=== PATIENT | male | born 1955 | race Caucasian/White ===

== ENCOUNTER 2024-11-27 10:35 | Inpatient (IN) | payer MEDICARE, OTHER ==
[2024-11-27] VITALS (8 sets, daily range): BP systolic 110–114; BP diastolic 68–69; PULSE 66–78; RESP 16–20; TEMP 97.4–98.9; O2SAT 93–95
[~2024-11-27] VITALS: Ht 182.9 cm; Wt 99.6 kg
[~2024-11-27 10:35] MED LIST: AMLODIPINE BES2.5 MG PO; ASPIR 8181 MG PO; COLACE100 MG PO; COUMADIN3 MG PO; DIGOXIN125 MCG PO; LASIX40 MG PO; LISINOPRIL10 MG PO; METOPROLOL SUCC25 MG PO; NORCO 5-325 TA1 EACH PO; PACERONE100 MG PO; POTASSIUM CHLO20 ME1 PO
[2024-11-27] MEDS: TRAMADOL HCL 50 MG TAB PO ONE (11:16)
[2024-11-27] MEDS: KETOROLAC TROMETHAMINE 30 MG/ML VIAL IM STA (11:17)
[2024-11-27 16:10] LABS: BASOPHILS % 0.6 % (0.0-1.0); EOSINOPHILS % 2.5 % (0.0-6.0); LYMPHOCYTES % 41.8 % (18.0-39.1); MONOCYTES % 27.2 % (4.4-11.3); NEUTROPHILS % 27.3 % (38.7-80.0); RED CELL DISTRIBUTION WIDTH 18.7 % (11.7-14.4)
[2024-11-27 16:30] LABS: EST GLOMERULAR FILTRATION RATE 100.0 ML/MIN (>=60)
[2024-11-27] MEDS ORDERED: FUROSEMIDE INJ 10 MG/ML 4 ML VIAL IV SCH (17:15)
[2024-11-27] MEDS ORDERED: FAMOTIDINE 20 MG TAB PO PRN (17:30)
[2024-11-27] MEDS ORDERED: IOPAMIDOL 370 MG/ML 100 ML INFUS..BTL INJ ONE (17:42)
[2024-11-27 17:56] LABS: % IRON SATURATION 91.0 % (15-50)
[2024-11-27 18:04] LABS: EOSINOPHILS % (MANUAL) 6 % (0-7); LYMPHOCYTES % (MANUAL) 20 % (19-48); METAMYELOCYTES % (MANUAL) 2 % (0-0); MONOCYTES % (MANUAL) 30 % (3.4-9.0); NEUTROPHILS % (MANUAL) 42 % (40-74)
[2024-11-27 18:05] LABS: PLATELET ESTIMATE MARKEDLY DECREASED; PLATELET MORPHOLOGY COMMENT NORMAL; RBC MORPHOLOGY COMMENT NORMAL
[2024-11-27 18:17] LABS: INR 4.13
[2024-11-27 18:57] LABS: HIV 1&2 AB SCREEN NON-REACTIVE (NONREACTIVE); HIV- 1 P24 AG SCREEN NON-REACTIVE (NONREACTIVE)
[2024-11-27] MEDS: Morphine 4mg INJECTION 4 MG/ML INJ IV PRN (21:32)
[2024-11-27] MEDS: ONDANSETRON HCL 4 MG ORAL DISINTEGRATING TAB PO PRN (21:49)
[2024-11-27] MEDS: POLYETHYLENE GLYCOL 3350 17 GM PACK PO ONE (21:54)
[2024-11-27] MEDS: MELATONIN 5 MG TABLET PO PRN (21:54)
[2024-11-27] MEDS: MAGNESIUM SULF 1GRAM/DEXTROSE 100 ML IV ONE (22:11)
[2024-11-27] MEDS: SODIUM CHLORIDE 0.9% 250ML 250 ML ONE (22:12)
[2024-11-28] VITALS (11 sets, daily range): BP systolic 94–118; BP diastolic 54–70; PULSE 64–114; RESP 18–21; TEMP 97.7–99.7; O2SAT 91–98
[2024-11-28 05:34] LABS: BASOPHILS % 0.6 % (0.0-1.0); EOSINOPHILS % 4.9 % (0.0-6.0); LYMPHOCYTES % 48.8 % (18.0-39.1); MONOCYTES % 29.6 % (4.4-11.3); NEUTROPHILS % 15.5 % (38.7-80.0); RED CELL DISTRIBUTION WIDTH 18.6 % (11.7-14.4)
[2024-11-28 05:56] LABS: EST GLOMERULAR FILTRATION RATE 99.0 ML/MIN (>=60)
[2024-11-28 08:41] LABS: EOSINOPHILS % (MANUAL) 6 % (0-7); LYMPHOCYTES % (MANUAL) 30 % (19-48); MONOCYTES % (MANUAL) 26 % (3.4-9.0); NEUTROPHILS % (MANUAL) 38 % (40-74); PLATELET ESTIMATE MODERATELY DECREASED; PLATELET MORPHOLOGY COMMENT NORMAL; RBC MORPHOLOGY COMMENT NORMAL
[2024-11-28] MEDS: FUROSEMIDE INJ 10 MG/ML 4 ML VIAL IV SCH (09:00)
[2024-11-28] MEDS ORDERED: METOPROLOL SUCCINATE 25 MG TAB XL PO SCH (09:00)
[2024-11-28] MEDS ORDERED: METOPROLOL SUCCINATE 25 MG TAB XL PO ONE (09:15)
[2024-11-28] MEDS: METOPROLOL SUCCINATE 25 MG TAB XL PO SCH (09:19)
[2024-11-28] MEDS: LACTULOSE SYRUP 20 GM/30 ML UDC PO SCH (11:17)
[2024-11-28] MEDS: FUROSEMIDE INJ 10 MG/ML 2 ML VIAL IV SCH (11:17)
[2024-11-28] MEDS: METOPROLOL TARTRATE INJ 1 MG/ML VIAL IV SCH (11:17)
[2024-11-28] MEDS: ALBUMIN 25% 25GM 100ML 0.25 GM/ML BTL IV ONE (12:31)
[2024-11-28 15:20] LABS: HEPATITIS A ANTIBODY IGM (P) Negative; HEPATITIS B CORE IGM (P) Negative; HEPATITIS B SURFACE AG (P) Negative
[2024-11-28] MEDS: DIGOXIN INJ 0.25 MG/ML 2 ML AMP IV ONE (15:25)
[2024-11-28] MEDS: HYDROCODONE/APAP 5MG-325MG TAB PO PRN (21:07)
[2024-11-29] VITALS (26 sets, daily range): BP systolic 82–113; BP diastolic 41–88; PULSE 77–133; RESP 15–25; TEMP 97.6–98.9; O2SAT 57–100
[2024-11-29 05:28] LABS: BASOPHILS % 0.4 % (0.0-1.0); EOSINOPHILS % 1.7 % (0.0-6.0); LYMPHOCYTES % 46.3 % (18.0-39.1); MONOCYTES % 26.4 % (4.4-11.3); NEUTROPHILS % 24.8 % (38.7-80.0); RED CELL DISTRIBUTION WIDTH 18.9 % (11.7-14.4)
[2024-11-29 05:58] LABS: EST GLOMERULAR FILTRATION RATE 89.0 ML/MIN (>=60)
[2024-11-29 08:31] LABS: BASOPHILS % (MANUAL) 2 % (0-1.5); EOSINOPHILS % (MANUAL) 2 % (0-7); LYMPHOCYTES % (MANUAL) 25 % (19-48); MONOCYTES % (MANUAL) 28 % (3.4-9.0); NEUTROPHILS % (MANUAL) 41 % (40-74); PLATELET ESTIMATE MODERATELY DECREASED; PLATELET MORPHOLOGY COMMENT NORMAL; RBC MORPHOLOGY COMMENT NORMAL; REACTIVE LYMPHOCYTES 2
[2024-11-29 09:00] LABS: INR 3.27
[2024-11-29] MEDS ORDERED: METOPROLOL SUCCINATE 50 MG TAB XL PO SCH (09:00)
[2024-11-29 09:05] LABS: LACTATE DEHYDROGENASE 389.0 IU/L (125-220)
[2024-11-29] MEDS: KETOROLAC TROMETHAMINE 30 MG/ML VIAL IV ONE (09:20)
[2024-11-29] MEDS: FILGRASTIM-AAFI 480 MCG/0.8 ML SYRINGE SQ ONE (09:20)
[2024-11-29] MEDS: METOPROLOL SUCCINATE 25 MG TAB XL PO SCH (09:21)
[2024-11-29] MEDS: FUROSEMIDE 20 MG TAB PO ONE (09:22)
[2024-11-29] MEDS: FUROSEMIDE 40 MG TAB PO SCH (09:22)
[2024-11-29] MEDS: ALBUMIN 25% 25GM 100ML 0.25 GM/ML BTL IV SCH (09:24)
[2024-11-29 11:31] LABS: LEUKOCYTE ESTERASE ,URINE NEGATIVE (NEGATIVE); PROTEIN,URINE DIPSTICK 2+ (NEGATIVE); URINE UROBILINOGEN 4.0 mg/dL (0.2 - 1)
[2024-11-29 11:32] LABS: EPITHELIAL CELLS,URINE FEW /LPF
[2024-11-29] MEDS: PANTOPRAZOLE SOD 40 MG TABEC PO SCH (16:57)
[2024-11-29] MEDS: DIGOXIN INJ 0.25 MG/ML 2 ML AMP IV ONE (16:57)
[2024-11-29 18:24] LABS: BASOPHILS % 0.4 % (0.0-1.0); EOSINOPHILS % 1.9 % (0.0-6.0); LYMPHOCYTES % 29.3 % (18.0-39.1); MONOCYTES % 20.8 % (4.4-11.3); NEUTROPHILS % 47.2 % (38.7-80.0); RED CELL DISTRIBUTION WIDTH 19.3 % (11.7-14.4)
[2024-11-29 18:43] LABS: EST GLOMERULAR FILTRATION RATE 49.0 ML/MIN (>=60)
[2024-11-29] MEDS ORDERED: FUROSEMIDE INJ 10 MG/ML 2 ML VIAL IV ONE (19:45)
[2024-11-29] MEDS ORDERED: MAGNESIUM/ALUMINUM/SIMETHICONE 30 ML UDC PO PRN (21:30)
[2024-11-29] MEDS ORDERED: ACETAMINOPHEN 325 MG TAB PO PRN (21:30)
[2024-11-29] MEDS ORDERED: HYDRALAZINE HCL 20 MG/ML VIAL IV PRN (21:30)
[2024-11-29] MEDS ORDERED: ACETAMINOPHEN 325 MG TAB PO ONE (22:15)
[2024-11-29] MEDS: ACETAMINOPHEN 325 MG TAB PO ONE (23:22)
[2024-11-30] VITALS (63 sets, daily range): BP systolic 71–136; BP diastolic 42–87; PULSE 72–139; RESP 13–27; TEMP 97.5–99.1; O2SAT 85–100
[2024-11-30] MEDS: ACETAMINOPHEN 325 MG TAB PO ONE (00:18)
[2024-11-30] MEDS: AMIODARONE HCL 150 MG/100 ML BAG IV ONE (01:13)
[2024-11-30] MEDS: AMIODARONE 900MG 900 MG in Premix Bag 1 BAG IV ONE (01:37)
[2024-11-30] MEDS: NOREPINEPHRINE 8 MG/D5W 250 ML 250 ML IV SCH (04:09)
[2024-11-30] MEDS: THIAMINE HCL 100 MG TAB PO SCH (08:19)
[2024-11-30] MEDS: FOLIC ACID 1 MG TAB PO SCH (08:19)
[2024-11-30] MEDS: MULTIVITAMINS/MINERALS TAB PO SCH (08:19)
[2024-11-30] MEDS: METOPROLOL SUCCINATE 25 MG TAB XL PO SCH (08:20)
[2024-11-30] MEDS: ALBUMIN 25% 25GM 100ML 0.25 GM/ML BTL IV SCH (08:30)
[2024-11-30] MEDS: BUMETANIDE INJ 0.25MG/ML 4ML VIAL IV ONE (08:34)
[2024-11-30] MEDS ORDERED: FUROSEMIDE INJ 10 MG/ML 4 ML VIAL IV SCH (09:00)
[2024-11-30] MEDS: BUMETANIDE 10 MG in SODIUM CHLORIDE 0.9% 60 ML IV SCH (09:17)
[2024-11-30 09:47] LABS: BASOPHILS % 0.0 % (0.0-1.0); EOSINOPHILS % 1.2 % (0.0-6.0); LYMPHOCYTES % 21.5 % (18.0-39.1); MONOCYTES % 22.5 % (4.4-11.3); NEUTROPHILS % 53.9 % (38.7-80.0); RED CELL DISTRIBUTION WIDTH 22.7 % (11.7-14.4)
[2024-11-30 10:13] LABS: INR 3.46
[2024-11-30 10:21] LABS: EST GLOMERULAR FILTRATION RATE 53.0 ML/MIN (>=60)
[2024-11-30] MEDS: ALBUMIN 25% 25GM 100ML 0.25 GM/ML BTL IV ONE (10:41)
[2024-11-30] MEDS: MAGNESIUM SULF 1GRAM/DEXTROSE 100 ML IV ONE (10:41)
[2024-11-30] MEDS: OCTREOTIDE ACETATE 500 MCG in SODIUM CHLORIDE 0.9% 250ML 249 ML IV SCH (11:04)
[2024-11-30] MEDS: THIAMINE HCL INJ 100 MG/ML 2ML VIAL IV SCH ×2 (12:08→12:11)
[2024-11-30 12:41] LABS: EOSINOPHILS % (MANUAL) 7 % (0-7); LYMPHOCYTES % (MANUAL) 18 % (19-48); MONOCYTES % (MANUAL) 20 % (3.4-9.0); NEUTROPHILS % (MANUAL) 54 % (40-74); PLATELET ESTIMATE MODERATELY DECREASED; PLATELET MORPHOLOGY COMMENT NORMAL; RBC MORPHOLOGY COMMENT NORMAL; REACTIVE LYMPHOCYTES 1
[2024-11-30 18:39] LABS: CREATININE,URINE RANDOM 57.35 mg/dL (63-166); TOTAL PROTEIN, URINE 35.5 mg/dL (1-14)
[2024-11-30] MEDS: SODIUM CHLORIDE 0.9% 250ML 250 ML ONE ×2 (19:36→19:37)
[2024-11-30] MEDS: SODIUM CHLORIDE 0.9% 250ML 250 ML IV ONE (19:36)
[2024-11-30] MEDS: AMIODARONE 900MG 500 ML IV ONE (19:37)
[2024-11-30] MEDS: FUROSEMIDE INJ 10 MG/ML 2 ML VIAL ONE (19:37)
[2024-11-30] MEDS: GUAIFENESIN 200 MG/10 ML UDC PO PRN (21:26)
[2024-12-01] VITALS (35 sets, daily range): BP systolic 94–140; BP diastolic 57–88; PULSE 92–126; RESP 15–25; TEMP 97.5–99.5; O2SAT 91–100
[2024-12-01] MEDS: AMIODARONE 900MG 900 MG in Premix Bag 1 BAG IV ONE (01:03)
[2024-12-01] MEDS: AMIODARONE 900MG 500 ML IV ONE (01:08)
[2024-12-01 06:50] LABS: BASOPHILS % 0.3 % (0.0-1.0); EOSINOPHILS % 0.9 % (0.0-6.0); LYMPHOCYTES % 21.4 % (18.0-39.1); MONOCYTES % 18.1 % (4.4-11.3); NEUTROPHILS % 58.7 % (38.7-80.0); RED CELL DISTRIBUTION WIDTH 23.0 % (11.7-14.4)
[2024-12-01 07:26] LABS: INR 3.34
[2024-12-01 07:33] LABS: EST GLOMERULAR FILTRATION RATE 44.0 ML/MIN (>=60)
[2024-12-01 08:41] LABS: ABG BASE EXCESS -4.0 mmol/L (-2 - 3); ABG HCO3 21 mmol/L (22-26); ABG OXYGEN SATURATION 94.0 % (95-98); ABG PCO2 34 mmHg (35-45); ABG PH 7.39 (7.35-7.45); ABG PO2 70 mmHg (80-105); ABG TCO2 22
[2024-12-01] MEDS: CEFTRIAXONE 2 GM in SODIUM CHLORIDE 0.9% 100 ML IV SCH (08:43)
[2024-12-01] MEDS: MIDODRINE 2.5 MG TAB PO SCH (08:45)
[2024-12-01 10:36] LABS: BAND NEUTROPHILS % (MANUAL) 1 %; EOSINOPHILS % (MANUAL) 2 % (0-7); LYMPHOCYTES % (MANUAL) 16 % (19-48); MONOCYTES % (MANUAL) 19 % (3.4-9.0); NEUTROPHILS % (MANUAL) 62 % (40-74); PLATELET ESTIMATE MARKEDLY DECREASED; PLATELET MORPHOLOGY COMMENT NORMAL
[2024-12-01] MEDS: EPOETIN ALFA-EPBX 10,000 UNIT/ML VIAL SC SCH (10:55)
[2024-12-01] MEDS: SODIUM CHLORIDE 0.9% 250ML 250 ML IV ONE (19:08)
[2024-12-01] MEDS: SODIUM CHLORIDE 0.9% 250ML 250 ML ONE (19:08)
[2024-12-02] VITALS (41 sets, daily range): BP systolic 94–117; BP diastolic 56–69; PULSE 100–149; RESP 15–24; TEMP 97.8–99.5; O2SAT 87–100
[2024-12-02 06:52] LABS: BASOPHILS % 0.3 % (0.0-1.0); EOSINOPHILS % 1.6 % (0.0-6.0); LYMPHOCYTES % 19.1 % (18.0-39.1); MONOCYTES % 15.0 % (4.4-11.3); NEUTROPHILS % 63.4 % (38.7-80.0); RED CELL DISTRIBUTION WIDTH 23.9 % (11.7-14.4)
[2024-12-02 07:03] LABS: INR 2.66
[2024-12-02 07:07] LABS: EST GLOMERULAR FILTRATION RATE 73.0 ML/MIN (>=60)
[2024-12-02] MEDS: IPRATROPIUM BROMIDE 0.02% 2.5 ML NEB NEB PRN (07:37)
[2024-12-02] MEDS: POTASSIUM CHLORIDE 20MEQ/100ML 100 ML IV ONE (08:34)
[2024-12-02] MEDS: AMIODARONE 900MG 500 ML IV SCH (08:37)
[2024-12-02 11:38] LABS: BAND NEUTROPHILS % (MANUAL) 12 %; EOSINOPHILS % (MANUAL) 1 % (0-7); LYMPHOCYTES % (MANUAL) 9 % (19-48); METAMYELOCYTES % (MANUAL) 1 % (0-0); MONOCYTES % (MANUAL) 5 % (3.4-9.0); NEUTROPHILS % (MANUAL) 72 % (40-74); NUCLEATED RED BLOOD CELLS 1; PLATELET ESTIMATE MARKEDLY DECREASED; PLATELET MORPHOLOGY COMMENT NORMAL
[2024-12-03] VITALS (27 sets, daily range): BP systolic 107–142; BP diastolic 60–127; PULSE 94–131; RESP 16–28; TEMP 97.6–99.1; O2SAT 87–100
[2024-12-03 06:36] LABS: BASOPHILS % 0.3 % (0.0-1.0); EOSINOPHILS % 1.8 % (0.0-6.0); LYMPHOCYTES % 16.1 % (18.0-39.1); MONOCYTES % 20.6 % (4.4-11.3); NEUTROPHILS % 60.3 % (38.7-80.0); RED CELL DISTRIBUTION WIDTH 23.9 % (11.7-14.4)
[2024-12-03 07:06] LABS: EST GLOMERULAR FILTRATION RATE 93.0 ML/MIN (>=60)
[2024-12-03 07:26] LABS: INR 2.19
[2024-12-03] MEDS: ALBUMIN 25% 25GM 100ML 0.25 GM/ML BTL IV ONE (07:28)
[2024-12-03] MEDS: POTASSIUM CHLORIDE 20MEQ/100ML 200 ML IV ONE ×3 (08:06→17:01)
[2024-12-03] MEDS: THIAMINE HCL INJ 100 MG/ML 2ML VIAL IV SCH (08:08)
[2024-12-03] MEDS ORDERED: GUAIFENESIN/CODEINE 5 ML LIQD PO PRN (08:30)
[2024-12-03] MEDS: MAGNESIUM SULF 1GRAM/DEXTROSE 100 ML IV ONE (09:27)
[2024-12-03] MEDS: ALBUMIN 25% 25GM 100ML 0.25 GM/ML BTL IV SCH (13:57)
[2024-12-03] MEDS ORDERED: AMIODARONE 900MG 900 MG in Premix Bag 1 BAG IV SCH (14:00)
[2024-12-03] MEDS: AMIODARONE 900MG 500 ML IV SCH (14:29)
[2024-12-04] VITALS (65 sets, daily range): BP systolic 102–127; BP diastolic 56–83; PULSE 95–130; RESP 17–32; TEMP 98–100.3; O2SAT 82–100
[2024-12-04 06:18] LABS: HEPATITIS A VIRUS AB TOTAL Negative
[2024-12-04 06:21] LABS: HEPATITIS C VIRUS, RNA DIAGNOS 121,000 IU/mL
[2024-12-04 06:27] LABS: HEPATITIS E AB (IGM) Negative
[2024-12-04 06:28] LABS: HEPATITIS B CORE AB TOTAL Positive
[2024-12-04 06:31] LABS: BASOPHILS % 0.3 % (0.0-1.0); EOSINOPHILS % 1.2 % (0.0-6.0); LYMPHOCYTES % 14.8 % (18.0-39.1); MONOCYTES % 21.8 % (4.4-11.3); NEUTROPHILS % 61.0 % (38.7-80.0); RED CELL DISTRIBUTION WIDTH 24.0 % (11.7-14.4)
[2024-12-04 06:52] LABS: EST GLOMERULAR FILTRATION RATE 95.0 ML/MIN (>=60); INR 2.38
[2024-12-04] MEDS: POTASSIUM CHLORIDE 20 MEQ TAB CR PO ONE (08:13)
[2024-12-04] MEDS: MAGNESIUM SULFATE 2GM/50ML 50 ML IV ONE ×2 (08:14→10:26)
[2024-12-04] MEDS: POTASSIUM CHLORIDE 20MEQ/100ML 100 ML IV SCH (14:01)
[2024-12-04] MEDS: AMIODARONE 900MG 900 MG in Premix Bag 1 BAG IV ONE (23:15)
[2024-12-05] VITALS (144 sets, daily range): BP systolic 70–137; BP diastolic 40–114; PULSE 58–154; RESP 17–36; TEMP 96.8–98.6; O2SAT 82–100
[2024-12-05] MEDS: AMIODARONE 900MG 500 ML IV ONE (01:59)
[2024-12-05 06:24] LABS: BASOPHILS % 0.2 % (0.0-1.0); EOSINOPHILS % 0.8 % (0.0-6.0); LYMPHOCYTES % 9.3 % (18.0-39.1); MONOCYTES % 10.7 % (4.4-11.3); NEUTROPHILS % 78.0 % (38.7-80.0); RED CELL DISTRIBUTION WIDTH 24.5 % (11.7-14.4)
[2024-12-05 06:41] LABS: INR 2.63
[2024-12-05 06:54] LABS: EST GLOMERULAR FILTRATION RATE 96.0 ML/MIN (>=60)
[2024-12-05] MEDS: ALBUMIN 25% 25GM 100ML 0.25 GM/ML BTL IV SCH (07:54)
[2024-12-05] MEDS: POTASSIUM CHLORIDE 20MEQ/100ML 100 ML IV ONE (09:12)
[2024-12-05 10:23] LABS: LYMPHOCYTES % (MANUAL) 4 % (19-48); MONOCYTES % (MANUAL) 13 % (3.4-9.0); NEUTROPHILS % (MANUAL) 83 % (40-74)
[2024-12-05 10:24] LABS: PLATELET ESTIMATE MARKEDLY DECREASED; PLATELET MORPHOLOGY COMMENT NORMAL; RBC MORPHOLOGY COMMENT ABNORMAL
[2024-12-05] MEDS: BUMETANIDE 10 MG in SODIUM CHLORIDE 0.9% 60 ML IV SCH (11:06)
[2024-12-05] MEDS: MAGNESIUM SULFATE 2GM/50ML 50 ML IV ONE (11:09)
[2024-12-05] MEDS: DIGOXIN INJ 0.25 MG/ML 2 ML AMP IV ONE (13:37)
[2024-12-05] MEDS ORDERED: METOPROLOL TARTRATE INJ 1 MG/ML VIAL IV PRN (14:00)
[2024-12-05] MEDS: DEXMEDETOMIDINE 400MCG/NS100ML 100 ML IV ONE (14:13)
[2024-12-05] MEDS: DEXMEDETOMIDINE 400MCG/NS100ML 100 ML IV PRN (14:13)
[2024-12-05] MEDS ORDERED: PROPOFOL IV EMULSION 10MG/ML 100 ML ONE (14:29)
[2024-12-05] MEDS: FENTANYL 2000MCG/NS 250 250 ML IV PRN (15:20)
[2024-12-05] MEDS: PROPOFOL IV EMULSION 10MG/ML 100 ML IV PRN (15:22)
[2024-12-05] MEDS: NOREPINEPHRINE 8 MG/D5W 250 ML 250 ML IV SCH (18:24)
[2024-12-05] MEDS ORDERED: SODIUM CHLORIDE 0.9% 1000ML 2,000 ML IV PRN (18:30)
[2024-12-05] MEDS ORDERED: HEPARIN SOD (PORCINE) 1000 UNIT/ML SDV IV PRN (18:30)
[2024-12-05] MEDS ORDERED: ALBUMIN 25% 12.5GM 0.25 GM/ML BTL IV PRN (18:30)
[2024-12-05 18:45] LABS: ABG BASE EXCESS 2.0 mmol/L (-2 - 3); ABG HCO3 27 mmol/L (22-26); ABG PCO2 48 mmHg (35-45); ABG PH 7.36 (7.35-7.45); ABG PO2 67 mmHg (80-105); ABG TCO2 28
[2024-12-05 18:46] LABS: ABG OXYGEN SATURATION 92.0 % (95-98)
[2024-12-05] MEDS: NOREPINEPHRINE 8 MG/D5W 250 ML 250 ML ONE (19:19)
[2024-12-06] VITALS (96 sets, daily range): BP systolic 94–141; BP diastolic 48–66; PULSE 64–106; RESP 11–25; TEMP 96.6–98; O2SAT 90–100
[2024-12-06 06:29] LABS: BASOPHILS % 0.1 % (0.0-1.0); EOSINOPHILS % 2.0 % (0.0-6.0); LYMPHOCYTES % 10.0 % (18.0-39.1); MONOCYTES % 6.2 % (4.4-11.3); NEUTROPHILS % 80.6 % (38.7-80.0); RED CELL DISTRIBUTION WIDTH 24.2 % (11.7-14.4)
[2024-12-06 06:58] LABS: EST GLOMERULAR FILTRATION RATE 49.0 ML/MIN (>=60)
[2024-12-06] MEDS: AMIODARONE 900MG 500 ML IV ONE (07:07)
[2024-12-06 07:19] LABS: INR 3.75
[2024-12-06 10:03] LABS: ABG BASE EXCESS 0.0 mmol/L (-2 - 3); ABG HCO3 25 mmol/L (22-26); ABG OXYGEN SATURATION 96.0 % (95-98); ABG PCO2 44 mmHg (35-45); ABG PH 7.37 (7.35-7.45); ABG PO2 89 mmHg (80-105); ABG TCO2 27
[2024-12-06 10:42] LABS: EOSINOPHILS % (MANUAL) 3 % (0-7); LYMPHOCYTES % (MANUAL) 11 % (19-48); MONOCYTES % (MANUAL) 6 % (3.4-9.0); NEUTROPHILS % (MANUAL) 80 % (40-74)
[2024-12-06 10:43] LABS: PLATELET ESTIMATE MARKEDLY DECREASED; PLATELET MORPHOLOGY COMMENT NORMAL; RBC MORPHOLOGY COMMENT ABNORMAL
[2024-12-07] VITALS (89 sets, daily range): BP systolic 81–116; BP diastolic 40–62; PULSE 64–116; RESP 13–23; TEMP 96.4–98.2; O2SAT 89–100
[2024-12-07 06:23] LABS: BASOPHILS % 0.4 % (0.0-1.0); EOSINOPHILS % 3.0 % (0.0-6.0); LYMPHOCYTES % 7.0 % (18.0-39.1); MONOCYTES % 3.8 % (4.4-11.3); NEUTROPHILS % 84.7 % (38.7-80.0); RED CELL DISTRIBUTION WIDTH 23.6 % (11.7-14.4)
[2024-12-07 06:56] LABS: EST GLOMERULAR FILTRATION RATE 31.0 ML/MIN (>=60); INR 7.25
[2024-12-07 09:33] LABS: ABG BASE EXCESS 0.0 mmol/L (-2 - 3); ABG HCO3 27 mmol/L (22-26); ABG OXYGEN SATURATION 94.0 % (95-98); ABG PCO2 61 mmHg (35-45); ABG PH 7.26 (7.35-7.45); ABG PO2 86 mmHg (80-105); ABG TCO2 29
[2024-12-07 10:07] LABS: EOSINOPHILS % (MANUAL) 1 % (0-7); LYMPHOCYTES % (MANUAL) 3 % (19-48); MONOCYTES % (MANUAL) 1 % (3.4-9.0); MYELOCYTES % (MANUAL) 3 % (0-0); NEUTROPHILS % (MANUAL) 92 % (40-74); NUCLEATED RED BLOOD CELLS 1; PLATELET ESTIMATE MODERATELY DECREASED; PLATELET MORPHOLOGY COMMENT NORMAL
[2024-12-07 10:08] LABS: RBC MORPHOLOGY COMMENT NORMAL
[2024-12-07] MEDS: PROPOFOL IV EMULSION 10MG/ML 100 ML IV PRN (12:24)
[2024-12-07 14:26] LABS: ABG BASE EXCESS 0.0 mmol/L (-2 - 3); ABG HCO3 27 mmol/L (22-26); ABG OXYGEN SATURATION 94.0 % (95-98); ABG PCO2 61 mmHg (35-45); ABG PH 7.26 (7.35-7.45); ABG PO2 86 mmHg (80-105); ABG TCO2 29
[2024-12-07 14:26] LABS: ABG BASE EXCESS 0.0 mmol/L (-2 - 3); ABG HCO3 25 mmol/L (22-26); ABG OXYGEN SATURATION 96.0 % (95-98); ABG PCO2 44 mmHg (35-45); ABG PH 7.37 (7.35-7.45); ABG PO2 89 mmHg (80-105); ABG TCO2 27
[2024-12-07 14:26] LABS: ABG BASE EXCESS -4.0 mmol/L (-2 - 3); ABG HCO3 21 mmol/L (22-26); ABG OXYGEN SATURATION 94.0 % (95-98); ABG PCO2 34 mmHg (35-45); ABG PH 7.39 (7.35-7.45); ABG PO2 70 mmHg (80-105); ABG TCO2 22
[2024-12-07 14:26] LABS: ABG BASE EXCESS -4.0 mmol/L (-2 - 3); ABG HCO3 21 mmol/L (22-26); ABG OXYGEN SATURATION 76.0 % (95-98); ABG PCO2 32 mmHg (35-45); ABG PH 7.41 (7.35-7.45); ABG PO2 40 mmHg (80-105); ABG TCO2 22
[2024-12-07] MEDS ORDERED: ETOMIDATE 2 MG/ML 10 ML INJ IV ONE (16:50)
[2024-12-07] MEDS: POTASSIUM CHLORIDE 20MEQ/100ML 200 ML IV ONE (18:29)
[2024-12-08] VITALS (46 sets, daily range): BP systolic 42–98; BP diastolic 20–58; PULSE 67–139; RESP 13–26; TEMP 97.9; O2SAT 85–96
[2024-12-08 05:22] LABS: BASOPHILS % 0.4 % (0.0-1.0); EOSINOPHILS % 1.6 % (0.0-6.0); LYMPHOCYTES % 8.2 % (18.0-39.1); MONOCYTES % 3.9 % (4.4-11.3); NEUTROPHILS % 84.7 % (38.7-80.0); RED CELL DISTRIBUTION WIDTH 23.2 % (11.7-14.4)
[2024-12-08 05:47] LABS: ABG BASE EXCESS 2.0 mmol/L (-2 - 3); ABG HCO3 27 mmol/L (22-26); ABG OXYGEN SATURATION 92.0 % (95-98); ABG PCO2 48 mmHg (35-45); ABG PH 7.36 (7.35-7.45); ABG PO2 67 mmHg (80-105); ABG TCO2 28
[2024-12-08 05:47] LABS: ABG BASE EXCESS 1.0 mmol/L (-2 - 3); ABG HCO3 25 mmol/L (22-26); ABG OXYGEN SATURATION 76.0 % (95-98); ABG PCO2 38 mmHg (35-45); ABG PH 7.43 (7.35-7.45); ABG PO2 40 mmHg (80-105); ABG TCO2 26
[2024-12-08 06:13] LABS: EST GLOMERULAR FILTRATION RATE 16.0 ML/MIN (>=60)
[2024-12-08] MEDS: ALBUMIN 25% 25GM 100ML 0.25 GM/ML BTL IV ONE (08:27)
[2024-12-08] MEDS: SODIUM BICARBONATE 8.4% INJ 50 ML SYR IV STA (08:28)
[2024-12-08 09:27] LABS: EOSINOPHILS % (MANUAL) 2 % (0-7); LYMPHOCYTES % (MANUAL) 7 % (19-48); MONOCYTES % (MANUAL) 4 % (3.4-9.0); NEUTROPHILS % (MANUAL) 87 % (40-74); NUCLEATED RED BLOOD CELLS 1
[2024-12-08 09:28] LABS: PLATELET ESTIMATE MODERATELY DECREASED; PLATELET MORPHOLOGY COMMENT NORMAL; RBC MORPHOLOGY COMMENT ABNORMAL
[2024-12-08 13:51] LABS: INR 8.97
== END 2024-12-08 22:45 | disposition expired | DRG 535 ==
LOC: ER 10:58 → ERHOLD 13:22 → MED/SURG 15:35 → ICU 11-29 18:59 → IMCU 12-08 18:20
PROVIDERS: ADMIT Family Medicine Adult Medicine; ATTEND Family Medicine Adult Medicine
PROC: 5A09357 Assistance with Respiratory Ventilation, Less than 24 Consecutive Hours, Continuous Positive Airway Pressure (ICD-10-PCS; 2024-11-29)
PROC: 02HV33Z Insertion of Infusion Device into Superior Vena Cava, Percutaneous Approach (ICD-10-PCS; 2024-11-29)
PROC: 3E043XZ Introduction of Vasopressor into Central Vein, Percutaneous Approach (ICD-10-PCS; 2024-11-29)
PROC: 30233N1 Transfusion of Nonautologous Red Blood Cells into Peripheral Vein, Percutaneous Approach (ICD-10-PCS; 2024-11-30)
PROC: 5A09457 Assistance with Respiratory Ventilation, 24-96 Consecutive Hours, Continuous Positive Airway Pressure (ICD-10-PCS; 2024-11-30)
PROC: 4A133R1 Monitoring of Arterial Saturation, Peripheral, Percutaneous Approach (ICD-10-PCS; principal; 2024-12-05)
PROC: 5A1945Z Respiratory Ventilation, 24-96 Consecutive Hours (ICD-10-PCS; 2024-12-05)
PROC: 0BH17EZ Insertion of Endotracheal Airway into Trachea, Via Natural or Artificial Opening (ICD-10-PCS; 2024-12-05)
PROC: 02HV33Z Insertion of Infusion Device into Superior Vena Cava, Percutaneous Approach (ICD-10-PCS; 2024-12-05)
PROC: 5A1D70Z Performance of Urinary Filtration, Intermittent, Less than 6 Hours Per Day (ICD-10-PCS; 2024-12-05)
DX: S32.501A Unspecified fracture of right pubis, initial encounter for closed fracture (principal); G92.8 Other toxic encephalopathy; K76.7 Hepatorenal syndrome; J96.01 Acute respiratory failure with hypoxia; I50.33 Acute on chronic diastolic (congestive) heart failure; J18.9 Pneumonia, unspecified organism; I21.A1 Myocardial infarction type 2; S22.42XA Multiple fractures of ribs, left side, initial encounter for closed fracture; J90 Pleural effusion, not elsewhere classified; D61.818 Other pancytopenia; D68.4 Acquired coagulation factor deficiency; E44.0 Moderate protein-calorie malnutrition; K76.6 Portal hypertension; I48.20 Chronic atrial fibrillation, unspecified; N39.0 Urinary tract infection, site not specified; N17.9 Acute kidney failure, unspecified; I11.0 Hypertensive heart disease with heart failure; R57.0 Cardiogenic shock; D70.9 Neutropenia, unspecified; Z66 Do not resuscitate; I95.9 Hypotension, unspecified; K70.30 Alcoholic cirrhosis of liver without ascites; K76.89 Other specified diseases of liver; I35.0 Nonrheumatic aortic (valve) stenosis; S80.811A Abrasion, right lower leg, initial encounter; E78.5 Hyperlipidemia, unspecified; I25.10 Atherosclerotic heart disease of native coronary artery without angina pectoris; S30.0XXA Contusion of lower back and pelvis, initial encounter; B19.20 Unspecified viral hepatitis C without hepatic coma; E87.70 Fluid overload, unspecified; R53.81 Other malaise; G47.30 Sleep apnea, unspecified; R60.1 Generalized edema; N28.1 Cyst of kidney, acquired; F10.10 Alcohol abuse, uncomplicated; R77.1 Abnormality of globulin; Z68.29 Body mass index [BMI] 29.0-29.9, adult; W18.39XA Other fall on same level, initial encounter; Y92.009 Unspecified place in unspecified non-institutional (private) residence as the place of occurrence of the external cause; Z79.01 Long term (current) use of anticoagulants; Z79.82 Long term (current) use of aspirin; Z95.1 Presence of aortocoronary bypass graft; Z96.89 Presence of other specified functional implants; Z88.0 Allergy status to penicillin; Z88.7 Allergy status to serum and vaccine
CPT/HCPCS: 36415; 36600; 70450; 71045; 71046; 71260; 72125; 72170; 72192; 74018; 74174; 74177; 76700; 80048; 80053; 80076; 81001; 82140; 82248; 82550; 82570; 82607; 82728; 82746; 82805; 83010; 83540; 83615; 83690; 83735; 83880; 84132; 84156; 84425; 84443; 84466; 84484; 85025; 85045; 85610; 86677; 86704; 86705; 86708; 86790; 86850; 86880; 86886; 86900; 86920; 87086; 87340; 87390; 87522; 92950; 93005; 93306; 94002; 94003; 94640; 94660; 94799; 99252; 99284; G0433; G0435; J0696; J1160; J1644; J1885; J1938; J2270; J2353; J2470; J3411; J3475; J3480; J7030; J7050; P9016; P9047; Q0162; Q9967